=== PATIENT | female | born 1960 | race African-American/Black ===

== ENCOUNTER → 2019-12-10 | Outpatient (CLI) | payer OTHER ==
[~2019-12-10] MED LIST: IRON15TA3 PO; POLY17PO5 PO; SENN8.6T11 PO; VITA1TAB19 PO; VITA1TAB31 PO
== END | disposition home or self-care (01) ==
LOC: LAB 08:05
PROVIDERS: ATTEND Nurse Anesthetist, Certified Registered
DX: Z01.812 Encounter for preprocedural laboratory examination (principal); Z12.11 Encounter for screening for malignant neoplasm of colon; Z20.828 Contact with and (suspected) exposure to other viral communicable diseases
CPT/HCPCS: U0003-CS

== ENCOUNTER → 2019-12-13 | Day surgery (SDC) | payer OTHER ==
[~2019-12-13] MED LIST changes: +IPRATRPIUM/ALBUTEROL 0.5/2.5MG 3 ML NEBU. NEB PRN; +IV RINGERS SOLUTION,LACTATED 1,000 ML IV SCH; +LIDOCAINE 2% PF 5 ML VIAL. ONE; +MIDAZOLAM HCL PF 2 MG/2 ML VIAL. IV ONE; +ONDANSETRON PF 4 MG/2 ML VIAL. IV PRN; +PROPOFOL 10,000 MCG/ML (20ML) VIAL IV ONE
[2019-12-13 11:09] VITALS: BP 171/91
--- NOTE | 2019-12-14 15:08 | PATHOLOGY ---
[facility] Accession Number: [id number] . 01 Material submitted: . PART A: colon - TRANSVERSE COLON POLYP. Modifiers: transverse PART B: rectum - RECTAL POLYP . 02 Diagnosis: A. Colon biopsy, transverse colon polyp: - Tubular adenoma. . B. Colorectal biopsy, rectal polyp: - Hyperplastic polyp. ([facility] 12/14/2019) [facility] 12/14/2019 1030 Local . 02 Comment: There is no high-grade dysplasia or evidence of malignancy. ([facility] 12/14/2019) . 02 Electronically signed: . Murphy De Guzman MD, Pathologist NPI- [id number] . 01 Gross description: . A. The specimen is received in formalin, labeled "Kathi Fausset, transverse colon polyp". Received is a segment of pale richardson soft tissue measuring 0.4 cm in maximum dimensions. The specimen is submitted entirely in cassette A1. . B. The specimen is received in formalin, labeled "Kathi Fausset, rectal polyp". Received is a segment of pale richardson soft tissue measuring 0.5 cm in maximum dimensions. The specimen is submitted entirely in cassette B1. ([facility]; 12/13/2019) QAC/QAC 12/13/2019 1817 Local . 02 Pathologist provided ICD-10: D12.3, K63.5 . 02 CPT . 546957, 240041 Specimen Comment: A courtesy copy of this report has been sent to [phone] Specimen Comment: [phone] Specimen Comment: Report sent to / DR KENDALL Performed at: [address], [place] [id number] MD Chema Lopez MD Phone: [phone] Performed at: [address] [id number] MD Murphy De Guzman MD Phone: [phone]
== END | disposition home or self-care (01) ==
LOC: SURG 09:04
PROVIDERS: ATTEND Internal Medicine Gastroenterology
DX: Z12.11 Encounter for screening for malignant neoplasm of colon (principal); D12.3 Benign neoplasm of transverse colon; K64.8 Other hemorrhoids; Z83.71 Family history of colonic polyps; Z79.899 Other long term (current) drug therapy; Z80.0 Family history of malignant neoplasm of digestive organs
CPT/HCPCS: 45380; 88305; J2001; J2704; J7120